=== PATIENT | female | born 1975 | race Caucasian/White ===

== ENCOUNTER 2020-01-03 22:09 | Inpatient (IN) | payer SELFPAY ==
[~2020-01-03] VITALS: Ht 157.5 cm; Wt 80.7 kg
[2020-01-03] MEDS ORDERED: LORAZEPAM INJ 2 MG/ML VIAL IVP ONE (22:30)
[2020-01-03] MEDS ORDERED: IV NS 0.9% 500 ML BAG IV ONE (22:30)
--- NOTE | 2020-01-03 22:30 | NUR ---
[id number]. ALOC. NEW ONSET SEIZURE. PT SLEEPING, AROUSES TO PAIN . POST ICTAL. NO OBVIOUS TRAUMA NOTED . PT WAS PLACED ON A MONITOR . VSS. WILL CONT TO MONITOR ,
[2020-01-03] MEDS ORDERED: LORAZEPAM INJ 2 MG/ML VIAL ONE (22:31)
[2020-01-03 22:33] LABS: BASOPHILS % (AUTO) 0.3 % (0.0-2.0); EOSINOPHILS % (AUTO) 3.1 % (0.0-6.0); HEMATOCRIT 43 % (33-45); HEMOGLOBIN 13.4 g/dL (11.5-14.8); LYMPHOCYTES # (AUTO) 3.3 /CMM (0.8-4.8); LYMPHOCYTES % (AUTO) 21.6 % (20.0-44.0); MEAN CORPUSCULAR HGB CONC 32 g/dl (31.0-36.0); MEAN CORPUSCULAR VOLUME 98 fL (82-100); MONOCYTES # (AUTO) 1.1 /CMM (0.1-1.30); MONOCYTES % (AUTO) 7.5 % (2.0-12.0); NEUTROPHILS # (AUTO) 10.3 /CMM (1.8-8.9); NEUTROPHILS % (AUTO) 67.5 % (43.0-81.0); PLATELET COUNT (AUTO) 188 /CMM (150-450); RED BLOOD CELL COUNT(AUTO) 4.36 MIL/uL (4.0-5.2); WHITE BLOOD COUNT (AUTO) 15.3 K/uL (4.3-11.0)
--- NOTE | 2020-01-03 22:53 | NUR ---
URINE COLLECTED AND SENT TO THE LAB
--- NOTE | 2020-01-03 23:14 | NUR ---
PT LEFT FOR CT
[2020-01-03 23:21] LABS: CALCIUM, SERUM 7.7 mg/dL (8.5-10.1); CREATININE 1.2 mg/dL (0.6-1.3); POTASSIUM 4.1 mmol/L (3.5-5.1)
[2020-01-03 23:27] LABS: ALBUMIN 3.5 g/dL (3.4-5.0); BILIRUBIN,DIRECT 0.1 mg/dL (0.0-0.2); BILIRUBIN,TOTAL 0.2 mg/dL (0.2-1.0); TOTAL PROTEIN, SERUM 6.8 g/dL (6.4-8.2)
[2020-01-04] VITALS (7 sets, daily range): BP systolic 109–127; BP diastolic 64–79
[2020-01-04] MEDS ORDERED: LEVETIRACETAM (500MG) 500 MG/5 ML VIAL IV ONE (00:36)
--- NOTE | 2020-01-04 00:54 | NUR ---
PT'S TAMPON WAS REMOVED CAREFULLY AND PT WAS PUT IN A DIAPER. PT REMAINED SLEEPY BUT RESPONSIVE TO VOICE. VSS . WILL CONT TO MONITOR ,
[2020-01-04] MEDS ORDERED: LEVETIRACETAM (500MG) 1,000 MG in IV NS 0.9% 100 ML IV SCH (01:00)
[2020-01-04] MEDS ORDERED: IV NS 0.9% 1,000 ML IV PRN (01:03)
[2020-01-04] MEDS ORDERED: LORAZEPAM INJ 2 MG/ML VIAL IV PRN (01:30)
[2020-01-04] MEDS ORDERED: MAG HYDROX/AL HYDROX/SIMETH 30 ML UDC PO PRN (01:30)
[2020-01-04] MEDS ORDERED: ACETAMINOPHEN 325 MG TABLET PO PRN (01:30)
[2020-01-04] MEDS ORDERED: Z GUARD REMEDY 2 OZ OINT TP PRN (01:30)
[2020-01-04] MEDS ORDERED: ONDANSETRON HCL/PF 4 MG/2 ML VIAL IVP PRN (01:30)
[2020-01-04] MEDS ORDERED: MAGNESIUM HYDROXIDE 30 ML UDC PO PRN (01:30)
--- NOTE | 2020-01-04 02:00 | NUR ---
PT WOKE UP, CONFUSED, A, OX1. PULLED OUT HER IV LINE AND FEECES ALL OVER HER BODY. PT GIVEN AND A BED BATH. [facility]ARE PROVIDED AND A NEW IV LINE STARTED ON RAC W/ GOOD BLOOD DRAW, WILL CONT TO MONITOR ,
[2020-01-04 02:08] LABS: APPEARANCE,URINE CLEAR (CLEAR); BILIRUBIN,URINE NEGATIVE (NEGATIVE); BLOOD, URINE TRACE-INTA Ery/uL (NEGATIVE); COLOR,URINE YELLOW (YELLOW); KETONES,URINE NEGATIVE (NEGATIVE); LEUKOCYTE ESTERASE ,URINE NEGATIVE (NEGATIVE); NITRITE, URINE NEGATIVE (NEGATIVE); PH,URINE 5.5 (5.0-8.0); PROTEIN,URINE NEGATIVE (NEGATIVE); UGLUCOSE 250 MG/DL mg/dL (NEGATIVE); UROBILINOGEN,URINE 0.2 EU/dL (0.2)
--- NOTE | 2020-01-04 02:13 | NUR ---
REPORT GIVEN TO MIKAYLA ON FIRST FLOOR
[2020-01-04 02:26] LABS: BACTERIA,URINE None seen /HPF (None Seen); RBC,URINE 0-2 /HPF (0-2); SQUAMOUS EPITHELIAL CELL,UR Few /HPF (None Seen); WBC,URINE 0-2 /HPF (0-3)
--- NOTE | 2020-01-04 02:31 | NUR ---
PT WAS TRANSFERRED TO 115 UNDER ACLS.
--- NOTE | 2020-01-04 02:39 | NUR ---
ANNEALING OVEN OPERATORMORTGAGE LOAN ASSISTANT NOTES PATIENT TRANSFERRED FROM ER VIA GURNEY; IN STABLE CONDITION. ABLE TO AMBULATE TO BED WITH ASSIST. TELE MONITOR READING SINUS RHYTHM, HEART RATE 71. PATIENT GIVEN 2L OF O2 VIA NC. A/OX1; ORIENTED TO NAME BUT IS CONFUSED. UNABLE TO ATTAIN INFORMATION ON MEDICAL HISTORY AND HOME MEDS AT THIS TIME DUE TO MENTAL STATUS. IV PRESENT ON RIGHT AC, SIZE 20, INTACT & PATENT. PATIENT IS CURRENTLY ON MENSTRUATION AND IS WEARING DIAPER. SKIN IS DRY AND INTACT. BELONGINGS LIST VERIFIED AND PLACED IN CHART. MD AWARE; ADMISSION ORDERS ACKNOWLEDGED. SAFETY MEASURES IN PLACE. BED LOCKED, ALARM ON, SIDE RAILS PADDED FOR SEIZURE PRECAUTION, LIGHTS DIMMED TO DECREASE STIMULI, CALL LIGHT WITHIN REACH. WILL CONTINUE TO MONITOR.
--- NOTE | 2020-01-04 07:03 | NUR ---
TOOL DISTRIBUTOR CLOSING NOTES PATIENT SLEEPING IN BED. REMAINS A/OX1. STABLE DURING SHIFT. PATIENT REMOVED IV ON RIGHT AC; NEW IV PLACED ON LEFT HAND, SIZE 22, INTACT & PATENT, NS RUNNING AT 75 ML/HR. TELE MONITOR READING SINUS RHYTHM, HEART RATE 78. SAFETY MEASURES IN PLACE. WILL ENDORSE TO DAY SHIFT NURSE PLAN OF CARE.
--- NOTE | 2020-01-04 07:30 | NUR ---
production machine operator Notes Received patient in bed from embosser apprentice. No signs or symptoms of distress. IV NS running at 75mL/HR. No pain at this time. Client says she feels loopy and doesn't know why shes here. She does not recall being transported or having the seizure itself. On assessment asked if shes had bowel or bladder accidents or loss of function. She stated that she didn't have an bowel or bladder accident when she had her seizure. Neuro assessment done with no abnormal findings seen. Bed is padded, seizure precautions. Bed alarm on. Bed in lowest position, call light within reach, all measures taken to ensure client safety.
[2020-01-04] MEDS: PANTOPRAZOLE 40 MG VIAL IV SCH (09:47)
[2020-01-04] MEDS ORDERED: SYNTHROID PO (10:01)
--- NOTE | 2020-01-04 18:00 | NUR ---
enamel machine operator Notes Spoke to Dr. Andujar and received verbal order for Kepra PO 500mg BID. Per conversation with physician PO medication should be sufficient to achieve a therapeutic level. Explained family has requested she be tested for COVID-19. I explained criteria to family about CDC guidelines and current limited resources available. IV Fluids were discontinued earlier on in the day at approximately 1000 when physician rounded: changed diet to regular diet, discontinued fluids based on adequate PO intake, and echocardiogram was ordered. She has requested orthostatic BP assessment and that was endorsed to telemarketing agent to be written in a nurses note.
--- NOTE | 2020-01-04 19:00 | NUR ---
manager utilities Notes Patient is in bed resting comfortably. Reports shes sleepy. No s/s of distress. No acute events noted at this time. Bed in lowest position, call light within reach, all measures taken to ensure client safety. Will endorse to lieutenant shift supervisor.
--- NOTE | 2020-01-04 19:57 | NUR ---
RN NOTES RECEIVED PATIENT AWAKE, RESTING COMFORTABLY, NO SIGNS OF ACUTE DISTRESS, SEIZURE PRECAUTION EMPHASIZED, SAFETY MEASURES IN PLACE, TELE MONITOR READS SINUS 60s TO 70s, IV ACCESS INTACT AND PATENT, ALL NEEDS ANTICIPATED, WILL CONTINUE TO MONITOR ACCORDINGLY.
[2020-01-04] MEDS: LEVETIRACETAM (250 MG) 250 MG TABLET PO SCH (21:15)
--- NOTE | 2020-01-04 21:45 | NUR ---
RN NOTES ASSESSED VITAL SIGNS LYING DOWN BP 110/62, SITTING 119/66, STANDING 120/68 HR 62 - 68 TEMP 97.8/OREM. DENIES N/V WILL MONITOR ACCORDINGLY.
[2020-01-05 00:45] VITALS: BP 125/74
--- NOTE | 2020-01-05 06:49 | NUR ---
RN NOTES ALL NEEDS ATTENDED AND MET, ABLE TO REST AND SLEPT AT INTERVALS, SEIZURE PRECAUTION EMPHASIZED, SAFETY MEASURES MAINTAINED, BED IN LOW LOCKED POSITION, CALL LIGHT WITHIN EASY REACH, RESTING COMFORTABLY AT THIS TIME TELE MONITOR READS SINUS RHYTHM 60s. WILL ENDORSE TO AM NURSE FOR CONTINUITY OF CARE.
[2020-01-05 06:50] LABS: BASOPHILS % (AUTO) 0.1 % (0.0-2.0); HEMATOCRIT 39 % (33-45); HEMOGLOBIN 12.8 g/dL (11.5-14.8); LYMPHOCYTES # (AUTO) 2.1 /CMM (0.8-4.8); LYMPHOCYTES % (AUTO) 22.5 % (20.0-44.0); MEAN CORPUSCULAR HGB CONC 33 g/dl (31.0-36.0); MEAN CORPUSCULAR VOLUME 94 fL (82-100); MONOCYTES # (AUTO) 0.9 /CMM (0.1-1.30); MONOCYTES % (AUTO) 9.5 % (2.0-12.0); NEUTROPHILS # (AUTO) 6.1 /CMM (1.8-8.9); NEUTROPHILS % (AUTO) 66.9 % (43.0-81.0); PLATELET COUNT (AUTO) 163 /CMM (150-450); RED BLOOD CELL COUNT(AUTO) 4.15 MIL/uL (4.0-5.2); WHITE BLOOD COUNT (AUTO) 9.2 K/uL (4.3-11.0)
[2020-01-05 07:09] LABS: CALCIUM, SERUM 8.1 mg/dL (8.5-10.1); CREATININE 0.7 mg/dL (0.6-1.3); MAGNESIUM 1.8 mg/dL (1.8-2.4); PHOSPHORUS 3.2 mg/dL (2.5-4.9); POTASSIUM 3.2 mmol/L (3.5-5.1)
[2020-01-05 07:16] LABS: THYROID STIMULATING HORMONE 1.45 uIU/mL (0.358-3.74)
--- NOTE | 2020-01-05 07:40 | NUR ---
RN OPENING NOTES RECEIVED PATIENT AWAKE, RESTING COMFORTABLY. A/OX4. NOT IN ANY FORM OF DISTRESS. NO SOB. DENIED PAIN OR DISCOMFORT AT THIS TIME. IV ACCESS INTACT AND PATENT. KEPT PATIENT SAFE AND COMFORTABLE. SEIZURE PRECAUTIONS MAINTAINED, SIDE RAILS PADDED. BED IN LOW/LOCKED PSOITION, SIDERAILS UPX2, CALL LIGHT IN REACH. WILL CONT TO MONIOTR ACCORDINGLY.
[2020-01-05 08:00] VITALS: BP 128/75
[2020-01-05] MEDS: LEVETIRACETAM (250 MG) 250 MG TABLET PO SCH (09:00)
[2020-01-05] MEDS: PANTOPRAZOLE 40 MG VIAL IV SCH (09:00)
[2020-01-05 12:00] VITALS: BP 139/73
[2020-01-05] MEDS: POTASSIUM CHLORIDE 20 MEQ TAB.PRT.SR PO SCH ×2 (12:38→13:20)
[2020-01-05] MEDS ORDERED: LEVE250T2 PO (15:41)
[2020-01-05 16:00] VITALS: BP 118/80
--- NOTE | 2020-01-05 16:45 | NUR ---
DISCHARGED PATIENT IN STABLE CONDITION PICKED UP BY MOTHER, ACCOMPANIED TO THE LOBBY BY PRIMARY NURSE. DISCHARGE INSTRUCTIONS GIVEN-TO F/U WITH PCP IN 1 WEEK, CONT HOME MEDS ORDERED, AND TO FOLLOW UP WITH NEUROLOGIST OUTPATIENT ([facility] CONTACT INFO FROM CASE MGT GIVEN). DC PAPERWORK AND EDUCATIONAL MATERIALS PROVIDED. REMOVED IV ACCESS, TIP INTACT, NO COMPLICATIONS. NAME BAND REMOVED. ALL BELONGINGS RETURNED, FORM SIGNED.
== END 2020-01-05 17:03 | disposition home or self-care (01) | DRG 101 ==
LOC: ER 22:12 → TELE1 01-04 01:18
PROVIDERS: ADMIT Student in an Organized Health Care Education/Training Program; ATTEND Student in an Organized Health Care Education/Training Program
DX: R56.9 Unspecified convulsions (principal); E86.0 Dehydration; E03.9 Hypothyroidism, unspecified; D72.829 Elevated white blood cell count, unspecified; R55 Syncope and collapse
CPT/HCPCS: 36415; 70450-TC; 80048-TC; 80061-TC; 80076-TC; 80305; 81000-TC; 83735-TC; 84100-TC; 84443-TC; 84703-TC; 85025-TC; 87081-TC; 93307-TC; 95819-TC; A6253; C9113; G0378; G0480; J1953; J2060; J7030; J7040